=== PATIENT | male | born 1935 | race Caucasian/White ===

== ENCOUNTER 2017-11-21 07:09 | Inpatient (IN) | payer OTHER ==
[~2017-11-21] VITALS: Ht 167.6 cm; Wt 66.3 kg
[~2017-11-21 07:09] MED LIST: ASPIR 8181 M1 PO; BENICAR20 MG PO; BISACODYL5 MG PO; DIOVAN HCT 11 TABLE1 PO; GLUCOPHAGE1000 MG PO; GLUCOPHAGE500 MG PO; HYDROCHLOROTHIA25 MG PO; IRON325 M1 PO; LIPITOR10 MG PO; OXYCODONE H5 MG/5 ML PO; POLYETHYLENE GL17 GM PO; SENNA PLUS TAB1 EACH PO; TYLENOL EXTRA500 MG PO
[2017-11-21 08:06] LABS: HEMATOCRIT 37.2 % (38.0-50.0); HEMOGLOBIN 12.6 G/DL (12.5-16.6); MCH 33.5 PG (29.0-34.0); MCHC 33.9 G/DL (30.0-36.0); MCV 98.9 FL (86-99); PLATELET COUNT 245 K/uL (156-360); RBC DIS.WIDTH-SD 46.6 % (39-53); RED BLOOD COUNT 3.76 M/uL (4.00-5.50); WHITE BLOOD COUNT 13.3 K/uL (4.1-10.2)
[2017-11-21 08:46] LABS: CHLORIDE 104 MEQ/L (99-109); GFR ESTIMATE (CALCULATED) > 59 mL/min/ (58.99-99999); GLUCOSE 266 mg/dL (70-99); POTASSIUM 3.8 MEQ/L (3.7-5.4); SODIUM 140 MEQ/L (136-147); UREA NITROGEN (BUN) 21 mg/dL (9-23)
[2017-11-21 08:54] LABS: TROP-I INTERPRETATION NEGATIVE; TROPONIN-I < 0.01 ng/mL (0.0-0.30)
[2017-11-21 09:37] LABS: INTER. NORMALIZED RATIO 1.1
[2017-11-21 09:39] LABS: PTT 24.1 SEC (25-37)
[2017-11-21] MEDS ORDERED: ERGOCALCIF50000 UNIT PO (10:17)
[2017-11-21] MEDS ORDERED: ALENDRONATE SOD70 MG PO (10:18)
[2017-11-21] MEDS ORDERED: JANUVIA25 M1 PO (10:18)
[2017-11-21] MEDS ORDERED: LUMIGAN 0.50 DROP/22 BOTH EYES (10:19)
[2017-11-21] MEDS ORDERED: ALPHAGAN P100 DROP/5 BOTH EYES (10:54)
[2017-11-21 19:41] VITALS: BP 136/59
[2017-11-22] VITALS (8 sets, daily range): BP systolic 101–155; BP diastolic 51–68
[2017-11-22 07:03] LABS: HEMATOCRIT 28.9 % (38.0-50.0); MCH 32.4 PG (29.0-34.0); MCHC 32.2 G/DL (30.0-36.0); MCV 100.7 FL (86-99); PLATELET COUNT 209 K/uL (156-360); RBC DIS.WIDTH-CV 13.2 % (11.8-14.6); WHITE BLOOD COUNT 6.7 K/uL (4.1-10.2)
[2017-11-22 07:04] LABS: HEMOGLOBIN 9.3 G/DL (12.5-16.6); RED BLOOD COUNT 2.87 M/uL (4.00-5.50)
[2017-11-22 07:12] LABS: CHLORIDE 107 MEQ/L (99-109); CREATININE 0.8 MG/DL (0.6-1.3); GFR ESTIMATE (CALCULATED) > 59 mL/min/ (58.99-99999); GLUCOSE 230 mg/dL (70-99); SODIUM 140 MEQ/L (136-147); UREA NITROGEN (BUN) 22 mg/dL (9-23)
[2017-11-22 07:14] LABS: POTASSIUM 5.3 MEQ/L (3.7-5.4)
[2017-11-22 17:12] LABS: APPEARANCE CLEAR ((CLEAR)); BILIRUBIN NEGATIVE; BLOOD MODERATE; COLOR YELLOW ((YELLOW)); GLUCOSE (STRIP) >=500; KETONES NEGATIVE; LEUKOCYTES NEGATIVE; NITRITE NEGATIVE; PROTEIN (STRIP) NEGATIVE; SPECIFIC GRAVITY 1.028 (1.000-1.030); UROBILINOGEN 0.2 MG/DL (0.2-1.0)
[2017-11-22 17:21] LABS: BACTERIA RARE /HPF; EPITHELIAL CELLS RARE /HPF; MUCUS NONE SEEN /LPF; RED BLOOD CELLS TNTC /HPF (0-5); UCUL ADDED? YES
[2017-11-23] VITALS (9 sets, daily range): BP systolic 111–143; BP diastolic 50–63
[2017-11-23 06:52] LABS: BASOPHIL (%) 0.3 % (0-1); EOSINOPHIL (%) 0.8 % (0-5); EOSINOPHIL COUNT 0.1 K/uL (0-0.3); HEMATOCRIT 24.1 % (38.0-50.0); HEMOGLOBIN 7.9 G/DL (12.5-16.6); IMM.RETIC FRACTION 16.4 % (3-19); IMMATURE GRANULOCYTE (%) 0.3 % (0.0-0.7); LYMPHOCYTE (%) 14.3 % (15-42); LYMPHOCYTE COUNT 0.9 K/uL (1.0-2.8); MCH 32.8 PG (29.0-34.0); MCHC 32.8 G/DL (30.0-36.0); MONOCYTE (%) 19.3 % (3-12); MONOCYTE COUNT 1.2 K/uL (0-0.8); NEUTROPHIL COUNT 4.1 K/uL (1.8-6.4); PLATELET COUNT 184 K/uL (156-360); RBC DIS.WIDTH-CV 13.2 % (11.8-14.6); RED BLOOD COUNT 2.41 M/uL (4.00-5.50); RETIC HGB EQUIVALENT 35.6 (28-36); RETICULOCYTE COUNT 2.3 % (0.5-1.8); WHITE BLOOD COUNT 6.4 K/uL (4.1-10.2)
[2017-11-23 07:12] LABS: ALBUMIN 3.1 G/DL (3.2-4.8); ALKALINE PHOSPHATASE 53 IU/L (3-129); ALT (GPT) 10 IU/L (3-49); AST (GOT) 29 IU/L (2-34); CHLORIDE 106 MEQ/L (99-109); GFR ESTIMATE (CALCULATED) > 59 mL/min/ (58.99-99999); GLUCOSE 173 mg/dL (70-99); IRON 18 MCG/DL (35-150); POTASSIUM 4.4 MEQ/L (3.7-5.4); SODIUM 140 MEQ/L (136-147); TOTAL BILIRUBIN 0.6 MG/DL (0.0-1.0); TRANSFERRIN (TIBC) 185.7 mg/dL (215-380); TRANSFERRIN SATUR. 10 % (20-55); UREA NITROGEN (BUN) 29 mg/dL (9-23)
[2017-11-23 08:02] LABS: FERRITIN 126 NG/ML (22-322)
[2017-11-23 08:07] LABS: FOLIC ACID (FOLATE) 14.2 NG/ML (5.0-22.0)
[2017-11-24 03:45] VITALS: BP 182/74
[2017-11-24 06:09] LABS: BASOPHIL (%) 0.4 % (0-1); EOSINOPHIL (%) 1.4 % (0-5); EOSINOPHIL COUNT 0.1 K/uL (0-0.3); HEMATOCRIT 26.1 % (38.0-50.0); HEMOGLOBIN 8.8 G/DL (12.5-16.6); IMMATURE GRANULOCYTE (%) 0.7 % (0.0-0.7); LYMPHOCYTE COUNT 0.5 K/uL (1.0-2.8); MCH 32.2 PG (29.0-34.0); MCHC 33.7 G/DL (30.0-36.0); MONOCYTE (%) 14.6 % (3-12); MONOCYTE COUNT 1.1 K/uL (0-0.8); NEUTROPHIL (%) 75.9 % (45-76); NEUTROPHIL COUNT 5.5 K/uL (1.8-6.4); PLATELET COUNT 152 K/uL (156-360); RBC DIS.WIDTH-CV 14.6 % (11.8-14.6); RBC DIS.WIDTH-SD 51.7 % (39-53); RED BLOOD COUNT 2.73 M/uL (4.00-5.50); WHITE BLOOD COUNT 7.3 K/uL (4.1-10.2)
[2017-11-24 06:10] LABS: MCV 95.6 FL (86-99)
[2017-11-24 06:20] LABS: CHLORIDE 106 MEQ/L (99-109); CREATININE 0.8 MG/DL (0.6-1.3); GFR ESTIMATE (CALCULATED) > 59 mL/min/ (58.99-99999); GLUCOSE 183 mg/dL (70-99); POTASSIUM 4.2 MEQ/L (3.7-5.4); SODIUM 138 MEQ/L (136-147); UREA NITROGEN (BUN) 26 mg/dL (9-23)
[2017-11-24 07:39] VITALS: BP 137/60
[2017-11-24] MEDS ORDERED: FERROUS SULFAT325 MG PO (11:05)
[2017-11-24] MEDS ORDERED: SENNA PLUS TAB1 EACH PO (11:06)
[2017-11-24] MEDS ORDERED: Tums,OsCal PO (11:06)
[2017-11-24] MEDS ORDERED: ENDOCET 5-3251 EACH PO (11:07)
[2017-11-24] MEDS ORDERED: CYANOCOBALAM1000 MCG PO (11:07)
[2017-11-24 11:39] VITALS: BP 120/56
== END 2017-11-24 15:09 | DRG 482 ==
LOC: EME 07:09 → 3EAST 10:51 → EDOF 10:51 → ENRESERV 10:58 → 3EAST 15:50
PROVIDERS: Emergency Medicine; Hospitalist; Internal Medicine; Orthopaedic Surgery; Physician Assistant
PROC: 0QS704Z Reposition Left Upper Femur with Internal Fixation Device, Open Approach (ICD-10-PCS; principal; 2017-11-21)
PROC: 30233N1 Transfusion of Nonautologous Red Blood Cells into Peripheral Vein, Percutaneous Approach (ICD-10-PCS; 2017-11-23)
DX: S72.142A Displaced intertrochanteric fracture of left femur, initial encounter for closed fracture (principal); I44.0 Atrioventricular block, first degree; I10 Essential (primary) hypertension; H40.9 Unspecified glaucoma; H35.30 Unspecified macular degeneration; E78.00 Pure hypercholesterolemia, unspecified; D64.9 Anemia, unspecified; M85.80 Other specified disorders of bone density and structure, unspecified site; E11.9 Type 2 diabetes mellitus without complications; W01.0XXA Fall on same level from slipping, tripping and stumbling without subsequent striking against object, initial encounter; Y92.000 Kitchen of unspecified non-institutional (private) residence as the place of occurrence of the external cause; Z82.49 Family history of ischemic heart disease and other diseases of the circulatory system; Z86.73 Personal history of transient ischemic attack (TIA), and cerebral infarction without residual deficits; Z79.84 Long term (current) use of oral hypoglycemic drugs; Z79.82 Long term (current) use of aspirin
CPT/HCPCS: 71045; 73501; 73502; 76000; 80048; 80053; 81003; 82607; 82728; 82746; 82948; 83540; 84466; 84484; 85014; 85018; 85025; 85027; 85046; 85610; 85730; 86850; 86900; 86901; 86920; 87086; 93005; 99281; 99285; C1713; J0131; J0690; J1170; J1650; J1815; J2250; J2405; J3010; J7030; J7120; P9016